=== PATIENT | female | born 1965 | race Caucasian/White ===

== ENCOUNTER 2018-11-10 13:01 | Inpatient (IN) ==
[~2018-11-10 13:01] MED LIST: *HR* Magnesium Sulfate 2 GM/50 ML PIGGYBACK IVPB ONE
[2018-11-10] MEDS ORDERED: 0.9 % Sodium Chloride 500 ML IVC STA (13:13)
[2018-11-10] MEDS ORDERED: Insulin Human Regular 10 UNIT in 0.9 % Sodium Chloride 10 ML IV ONE (13:15)
[2018-11-10] MEDS ORDERED: *HR* Dextrose 50 % in Water (Vial) 50 ML VIAL IVP ONE (13:15)
[2018-11-10] MEDS ORDERED: Albuterol Sulfate 2 MG/5 ML UDC PO ONE (13:16)
[2018-11-10] MEDS ORDERED: Calcium Gluconate 1gm/50mL 1 GM/50 ML BAG IVPB STA (13:18)
[2018-11-10] MEDS ORDERED: *HR* Promethazine 25 MG/ML VIAL ONE (13:29)
[2018-11-10] MEDS ORDERED: Albuterol 2.5 MG/3 ML NEBULIZER ONE ×2 (13:31→13:49)
[2018-11-10 13:40] LABS: Basophils % 0.3 %; Eosinophils % 0.2 %; Hematocrit 37.8 % (35.3-44.9); Immature Granulocytes % 0.4 % (0-4); Lymphocytes # 3.6 K/mcL (0.6-4.6); Lymphocytes % 24.1 %; Mean Corpuscular HGB Conc 32.5 g/dL (31.6-35.5); Mean Corpuscular Hemoglobin 30.4 pg (28.0-33.3); Mean Corpuscular Volume 93.6 fL (83.0-100.0); Mean Platelet Volume 11.2 fL (9.4-12.4); Monocytes # 0.5 K/mcL (0.0-1.3); Monocytes % 3.1 %; Neutrophils # 10.7 K/mcL (1.6-8.9); Nucleated Red Blood Cells 0.1 /100 WBC (0); Platelet Count 406 K/mcL (140-400); Red Blood Count 4.04 M/mcL (3.82-4.97); Red Cell Distribution Width 16.1 % (11.5-14.5); Segmented Neutrophils % 71.9 %
[2018-11-10 13:41] LABS: Hemoglobin 12.3 g/dL (11.5-15.4); White Blood Count 14.9 K/mcL (4.3-11.1)
[2018-11-10] MEDS ORDERED: WATER IVP ONE (13:45)
[2018-11-10] MEDS ORDERED: DEXTROSE 25% IVP ONE (13:45)
[2018-11-10] MEDS ORDERED: Albuterol 2.5 MG/3 ML NEBULIZER IH ONE (13:56)
[2018-11-10] MEDS ORDERED: 0.9 % Sodium Chloride 1,000 ML ONE (14:03)
[2018-11-10 14:12] LABS: Calcium 10.2 mg/dL (8.6-10.3); Potassium 9.6 mEq/L (3.5-5.1)
[2018-11-10] MEDS ORDERED: D5% in Water 1,000 ML IVC ONE (14:12)
[2018-11-10] MEDS ORDERED: Sodium Bicarbonate 50 MEQ/50 ML VIAL ONE (14:12)
[2018-11-10] MEDS ORDERED: *HR* Heparin 10,000 UNIT/10 ML VIAL IV PRN (14:24)
[2018-11-10] MEDS ORDERED: 0.9 % Sodium Chloride 250 ML IVC PRN (14:24)
[2018-11-10] MEDS ORDERED: Sodium Bicarbonate 150 MEQ in D5% in Water 1,000 ML IVC ONE (14:30)
[2018-11-10] MEDS ORDERED: Phenylephrine 10 MG in D5% in Water 250 ML IVC SCH (14:30)
[2018-11-10] MEDS ORDERED: 0.9 % Sodium Chloride 1,000 ML PRIME SCH (14:30)
[2018-11-10] MEDS ORDERED: *HR* Heparin 5,000 UNIT/ML VIAL ONE ×2 (14:35→14:36)
[2018-11-10 14:48] LABS: Albumin 5.5 g/dL (3.5-5.7); Albumin/Globulin Ratio 1.6 (1.1-2.2); Bilirubin,Indirect 0.3 mg/dL (0.0-1.2); Bilirubin,Total 0.3 mg/dL (0.3-1.0); Globulin 3.5 g/dL (2.4-3.5)
[2018-11-10 15:06] LABS: Hepatitis B Surface Antibody 5.58 mIU/mL
[2018-11-10 15:16] LABS: Hepatitis B Surface Antigen Nonreactive (Nonreactive)
[2018-11-10 15:36] LABS: Activated Partial Thrombo Time 92.8 Seconds (26.0-36.0); INR 1.3; Prothrombin Time 14.7 Seconds (9.4-12.1)
[2018-11-10 15:41] LABS: Calcium 11.1 mg/dL (8.6-10.3)
[2018-11-10 15:42] LABS: Potassium 6.8 mEq/L (3.5-5.1)
[2018-11-10 15:44] LABS: Hepatitis B Core IgM Nonreactive (Nonreactive)
[2018-11-10 15:46] LABS: Hepatitis A Antibody IgM Nonreactive (Nonreactive); Hepatitis C Virus Antibody Nonreactive (Nonreactive)
[2018-11-10] MEDS ORDERED: Naloxone 0.4 MG/ML INJ IVP PRN (18:04)
[2018-11-10] MEDS ORDERED: *HR* Dextrose 50 % in Water (Syg) 50 ML SYRINGE IVP PRN (18:10)
[2018-11-10] MEDS ORDERED: Dextrose Gel 15 GM/37.5 ML TUBE PO PRN ×2 (18:10)
[2018-11-10] MEDS ORDERED: D5% in Water 1,000 ML IVC PRN (18:10)
[2018-11-10] MEDS ORDERED: Albuterol 2.5 MG/3 ML NEBULIZER IH PRN (18:12)
[2018-11-10 19:37] LABS: Potassium 3.8 mEq/L (3.5-5.1)
[2018-11-10] MEDS: Insulin LISPRO 300 UNITS/3 ML VIAL SQ SCH (20:00)
[2018-11-10] MEDS: *HR* Heparin 5,000 UNIT/ML VIAL SQ SCH (20:58)
[2018-11-10] MEDS ORDERED: traZODone 50 MG TABLET PO PRN (21:00)
[2018-11-10] MEDS ORDERED: Insulin DETEMIR 100 UNIT/ML X5UNITS SQ SCH (21:00)
[2018-11-10] MEDS ORDERED: Insulin LISPRO 300 UNITS/3 ML VIAL SQ SCH (21:00)
[2018-11-11] MEDS ORDERED: Acetaminophen 325 MG TABLET PO ONE (02:56)
[2018-11-11 03:10] LABS: Basophils % 0.2 %; Eosinophils % 0.5 %; Hematocrit 25.2 % (35.3-44.9); Immature Granulocytes % 0.5 % (0-4); Lymphocytes # 2.8 K/mcL (0.6-4.6); Lymphocytes % 33.9 %; Mean Corpuscular HGB Conc 34.1 g/dL (31.6-35.5); Mean Corpuscular Hemoglobin 30.7 pg (28.0-33.3); Mean Platelet Volume 10.1 fL (9.4-12.4); Monocytes # 0.7 K/mcL (0.0-1.3); Monocytes % 8.3 %; Neutrophils # 4.6 K/mcL (1.6-8.9); Platelet Count 187 K/mcL (140-400); Red Cell Distribution Width 15.9 % (11.5-14.5); Segmented Neutrophils % 56.6 %; White Blood Count 8.1 K/mcL (4.3-11.1)
[2018-11-11 03:31] LABS: Albumin 3.9 g/dL (3.5-5.7); Albumin/Globulin Ratio 1.7 (1.1-2.2); Bilirubin,Direct 0.1 mg/dL (0.0-0.2); Bilirubin,Indirect 0.1 mg/dL (0.0-1.2); Bilirubin,Total 0.2 mg/dL (0.3-1.0); Calcium 9.2 mg/dL (8.6-10.3); Globulin 2.3 g/dL (2.4-3.5); Potassium 4.2 mEq/L (3.5-5.1); Total Protein 6.2 g/dL (6.4-8.9)
[2018-11-11 03:35] LABS: Hemoglobin 8.6 g/dL (11.5-15.4)
[2018-11-11] MEDS: *HR* Heparin 5,000 UNIT/ML VIAL SQ SCH ×2 (06:11→18:21)
[2018-11-11 08:10] LABS: Estimated Average Glucose 143 mg/dl
[2018-11-11] MEDS: Insulin LISPRO 300 UNITS/3 ML VIAL SQ SCH ×4 (10:12→21:15)
[2018-11-11 10:32] LABS: Thyroid Stimulating Hormone 213.77 mcIU/mL (0.340-5.600)
[2018-11-11] MEDS ORDERED: 0.9 % Sodium Chloride 250 ML IVC PRN (12:18)
[2018-11-11] MEDS ORDERED: Naloxone 0.4 MG/ML INJ IVP PRN (12:18)
[2018-11-11] MEDS ORDERED: Dextrose Gel 15 GM/37.5 ML TUBE PO PRN ×2 (12:18)
[2018-11-11] MEDS ORDERED: Albuterol 2.5 MG/3 ML NEBULIZER IH PRN (12:18)
[2018-11-11] MEDS ORDERED: *HR* Dextrose 50 % in Water (Syg) 50 ML SYRINGE IVP PRN (12:18)
[2018-11-11] MEDS ORDERED: D5% in Water 1,000 ML IVC PRN (12:18)
[2018-11-11 16:04] LABS: Bilirubin,Urine Small (Negative); Blood,Urine Moderate (Negative); Clarity,Urine Clear (Clear); Color,Urine Yellow (Yellow); Glucose,Urine (UA) Normal (Normal); Ketones,Urine Trace mg/dL (Negative); Leukocyte Esterase,Urine Moderate (Negative); Nitrite,Urine Negative (Negative); Protein,Urine >=300 mg/dL (Neg-Trace); Specific Gravity,Urine >= 1.030 (1.010-1.025); Urobilinogen,Urine Normal (Normal)
[2018-11-11 16:25] LABS: Bacteria,Urine Few per hpf (None-Few); Squamous Epithelial Cell,Urine Many per lpf (None-Few); WBC,Urine TNTC per hpf (0-3)
[2018-11-11 16:35] LABS: Sodium, Urine 20.6 mEq/L
[2018-11-11] MEDS: Gabapentin 300 MG CAPSULE PO SCH (21:22)
[2018-11-11] MEDS: traZODone 50 MG TABLET PO PRN (21:22)
[2018-11-11] MEDS: Insulin DETEMIR 100 UNIT/ML X5UNITS SQ SCH (21:23)
[2018-11-12 04:27] LABS: Basophils % 0.5 %; Eosinophils # 0.1 K/mcL (0.0-0.6); Eosinophils % 1.4 %; Hematocrit 24.9 % (35.3-44.9); Hemoglobin 8.2 g/dL (11.5-15.4); Immature Granulocytes % 0.2 % (0-4); Lymphocytes # 2.8 K/mcL (0.6-4.6); Lymphocytes % 42.8 %; Mean Corpuscular HGB Conc 32.9 g/dL (31.6-35.5); Mean Corpuscular Hemoglobin 30.6 pg (28.0-33.3); Mean Corpuscular Volume 92.9 fL (83.0-100.0); Mean Platelet Volume 10.5 fL (9.4-12.4); Monocytes # 0.5 K/mcL (0.0-1.3); Neutrophils # 3.1 K/mcL (1.6-8.9); Platelet Count 162 K/mcL (140-400); Red Blood Count 2.68 M/mcL (3.82-4.97); Red Cell Distribution Width 15.9 % (11.5-14.5); Segmented Neutrophils % 48.1 %; White Blood Count 6.4 K/mcL (4.3-11.1)
[2018-11-12] MEDS: *HR* Heparin 5,000 UNIT/ML VIAL SQ SCH ×2 (04:34→16:43)
[2018-11-12 04:50] LABS: Albumin 3.9 g/dL (3.5-5.7); Albumin/Globulin Ratio 1.4 (1.1-2.2); Bilirubin,Total 0.2 mg/dL (0.3-1.0); Calcium 8.8 mg/dL (8.6-10.3); Globulin 2.7 g/dL (2.4-3.5); Total Protein 6.6 g/dL (6.4-8.9)
[2018-11-12] MEDS ORDERED: Albuterol 2.5 MG/3 ML NEBULIZER IH PRN (07:34)
[2018-11-12] MEDS: Insulin LISPRO 300 UNITS/3 ML VIAL SQ SCH ×4 (07:49→20:41)
[2018-11-12] MEDS: Cholecalciferol (D-3) 1,000 UNIT (25MCG) TABLET PO SCH (08:27)
[2018-11-12] MEDS: Aspirin Enteric Coated 81 MG Tablet PO SCH (08:27)
[2018-11-12] MEDS: PARoxetine 30 MG TABLET PO SCH (08:27)
[2018-11-12] MEDS: Folic Acid 1 MG TABLET PO SCH (08:27)
[2018-11-12] MEDS ORDERED: 0.9 % Sodium Chloride 1,000 ML IVC ONE (12:23)
[2018-11-12] MEDS: cefTRIAXone 1,000 MG in Water for inj. (sterile) 10 ML IVP SCH (13:38)
[2018-11-12] MEDS ORDERED: Acetaminophen 325 MG TABLET PO PRN (16:45)
[2018-11-12] MEDS: Gabapentin 300 MG CAPSULE PO SCH (20:34)
[2018-11-12] MEDS: Insulin DETEMIR 100 UNIT/ML X5UNITS SQ SCH (20:42)
[2018-11-13 04:45] LABS: Hemoglobin 8.4 g/dL (11.5-15.4); Mean Corpuscular HGB Conc 32.3 g/dL (31.6-35.5); Mean Corpuscular Hemoglobin 30.5 pg (28.0-33.3); Mean Corpuscular Volume 94.5 fL (83.0-100.0); Mean Platelet Volume 10.3 fL (9.4-12.4); Platelet Count 155 K/mcL (140-400); Red Blood Count 2.75 M/mcL (3.82-4.97); Red Cell Distribution Width 15.5 % (11.5-14.5); White Blood Count 5.4 K/mcL (4.3-11.1)
[2018-11-13 05:04] LABS: Calcium 8.8 mg/dL (8.6-10.3); Potassium 3.9 mEq/L (3.5-5.1)
[2018-11-13] MEDS: Acetaminophen 325 MG TABLET PO PRN ×3 (06:39→20:15)
[2018-11-13] MEDS: *HR* Heparin 5,000 UNIT/ML VIAL SQ SCH ×2 (06:39→17:32)
[2018-11-13] MEDS ORDERED: Insulin LISPRO 300 UNITS/3 ML VIAL SQ SCH (07:30)
[2018-11-13] MEDS: Insulin LISPRO 300 UNITS/3 ML VIAL SQ SCH ×7 (08:49→20:09)
[2018-11-13] MEDS: PARoxetine 30 MG TABLET PO SCH (09:01)
[2018-11-13] MEDS: Aspirin Enteric Coated 81 MG Tablet PO SCH (09:01)
[2018-11-13] MEDS: Folic Acid 1 MG TABLET PO SCH (09:01)
[2018-11-13] MEDS: Cholecalciferol (D-3) 1,000 UNIT (25MCG) TABLET PO SCH (09:01)
[2018-11-13] MEDS: cefTRIAXone 1,000 MG in Water for inj. (sterile) 10 ML IVP SCH (09:02)
[2018-11-13] MEDS ORDERED: *HR* LORazepam 0.5 MG TABLET PO ONE (10:15)
[2018-11-13] MEDS: Insulin DETEMIR 100 UNIT/ML X5UNITS SQ SCH (20:11)
[2018-11-13] MEDS: traZODone 50 MG TABLET PO PRN (20:15)
[2018-11-14 05:40] LABS: Hemoglobin 9.3 g/dL (11.5-15.4); Mean Corpuscular HGB Conc 33.2 g/dL (31.6-35.5); Mean Corpuscular Volume 96.2 fL (83.0-100.0); Mean Platelet Volume 10.6 fL (9.4-12.4); Platelet Count 170 K/mcL (140-400); Red Blood Count 2.91 M/mcL (3.82-4.97); Red Cell Distribution Width 15.6 % (11.5-14.5); White Blood Count 5.2 K/mcL (4.3-11.1)
[2018-11-14 06:05] LABS: Calcium 9.3 mg/dL (8.6-10.3); Potassium 4.4 mEq/L (3.5-5.1)
[2018-11-14] MEDS: *HR* Heparin 5,000 UNIT/ML VIAL SQ SCH ×2 (06:06→17:10)
[2018-11-14] MEDS: Insulin LISPRO 300 UNITS/3 ML VIAL SQ SCH ×7 (07:14→20:36)
[2018-11-14] MEDS: Aspirin Enteric Coated 81 MG Tablet PO SCH (08:14)
[2018-11-14] MEDS: ARIPiprazole 10 MG TABLET PO SCH (08:14)
[2018-11-14] MEDS: cefTRIAXone 1,000 MG in Water for inj. (sterile) 10 ML IVP SCH (08:14)
[2018-11-14] MEDS: PARoxetine 30 MG TABLET PO SCH (08:14)
[2018-11-14] MEDS: Cholecalciferol (D-3) 1,000 UNIT (25MCG) TABLET PO SCH (08:14)
[2018-11-14] MEDS: Folic Acid 1 MG TABLET PO SCH (08:14)
[2018-11-14] MEDS: traZODone 50 MG TABLET PO PRN (20:35)
[2018-11-14] MEDS: Acetaminophen 325 MG TABLET PO PRN (20:35)
[2018-11-14] MEDS: Insulin DETEMIR 100 UNIT/ML X5UNITS SQ SCH (20:36)
[2018-11-15 05:03] LABS: Calcium 9.3 mg/dL (8.6-10.3); Potassium 4.3 mEq/L (3.5-5.1)
[2018-11-15] MEDS: *HR* Heparin 5,000 UNIT/ML VIAL SQ SCH ×2 (05:50→17:48)
[2018-11-15] MEDS: Insulin LISPRO 300 UNITS/3 ML VIAL SQ SCH ×7 (08:54→21:03)
[2018-11-15] MEDS: Folic Acid 1 MG TABLET PO SCH (08:55)
[2018-11-15] MEDS: ARIPiprazole 10 MG TABLET PO SCH (08:55)
[2018-11-15] MEDS: PARoxetine 30 MG TABLET PO SCH (08:55)
[2018-11-15] MEDS: Cholecalciferol (D-3) 1,000 UNIT (25MCG) TABLET PO SCH (08:55)
[2018-11-15] MEDS: Aspirin Enteric Coated 81 MG Tablet PO SCH (08:56)
[2018-11-15] MEDS ORDERED: Sod Bicarb 150mEq/D5W 150 MEQ/1,000 ML IV.SOLN IVC SCH (10:15)
[2018-11-15] MEDS ORDERED: Sodium Bicarbonate 150 MEQ in D5% in Water 1,000 ML IVC SCH (10:30)
[2018-11-15] MEDS: Acetaminophen 325 MG TABLET PO PRN (20:28)
[2018-11-15] MEDS: traZODone 50 MG TABLET PO PRN (21:03)
[2018-11-15] MEDS: Insulin DETEMIR 100 UNIT/ML X5UNITS SQ SCH (21:04)
[2018-11-16] MEDS: *HR* Heparin 5,000 UNIT/ML VIAL SQ SCH ×2 (05:20→17:30)
[2018-11-16 05:55] LABS: Hematocrit 29.2 % (35.3-44.9); Hemoglobin 9.6 g/dL (11.5-15.4); Mean Corpuscular HGB Conc 32.9 g/dL (31.6-35.5); Mean Corpuscular Hemoglobin 32.3 pg (28.0-33.3); Mean Corpuscular Volume 98.3 fL (83.0-100.0); Mean Platelet Volume 10.8 fL (9.4-12.4); Platelet Count 183 K/mcL (140-400); Red Blood Count 2.97 M/mcL (3.82-4.97); Red Cell Distribution Width 15.9 % (11.5-14.5); White Blood Count 5.9 K/mcL (4.3-11.1)
[2018-11-16 06:24] LABS: Calcium 9.4 mg/dL (8.6-10.3); Potassium 4.7 mEq/L (3.5-5.1)
[2018-11-16] MEDS: ARIPiprazole 10 MG TABLET PO SCH (07:42)
[2018-11-16] MEDS: Folic Acid 1 MG TABLET PO SCH (07:43)
[2018-11-16] MEDS: Aspirin Enteric Coated 81 MG Tablet PO SCH (07:43)
[2018-11-16] MEDS: Cholecalciferol (D-3) 1,000 UNIT (25MCG) TABLET PO SCH (07:43)
[2018-11-16] MEDS: Acetaminophen 325 MG TABLET PO PRN ×3 (07:43→22:06)
[2018-11-16] MEDS: PARoxetine 30 MG TABLET PO SCH (07:44)
[2018-11-16] MEDS: Insulin LISPRO 300 UNITS/3 ML VIAL SQ SCH ×7 (07:51→21:15)
[2018-11-16 17:31] LABS: ABG Base Excess -11 mEq/L (-2 to 3); ABG HCO3 14 mEq/L (21-27); ABG Oxygen Saturation 96 % (95-98); ABG PCO2 30 mmHg (35-45); ABG PH 7.29 pH Units (7.32-7.45); ABG PO2 87 mmHg (85-104); ABG TCO2 15 mEq/L (20-26)
[2018-11-16] MEDS: traZODone 50 MG TABLET PO PRN (21:14)
[2018-11-16] MEDS: Insulin DETEMIR 100 UNIT/ML X5UNITS SQ SCH (21:14)
[2018-11-17 03:01] LABS: Hematocrit 28.3 % (35.3-44.9); Hemoglobin 9.2 g/dL (11.5-15.4); Mean Corpuscular HGB Conc 32.5 g/dL (31.6-35.5); Mean Corpuscular Hemoglobin 31.7 pg (28.0-33.3); Mean Corpuscular Volume 97.6 fL (83.0-100.0); Mean Platelet Volume 10.9 fL (9.4-12.4); Platelet Count 163 K/mcL (140-400); Red Cell Distribution Width 16.1 % (11.5-14.5); White Blood Count 5.8 K/mcL (4.3-11.1)
[2018-11-17 04:24] LABS: Albumin 4.1 g/dL (3.5-5.7); Albumin/Globulin Ratio 1.7 (1.1-2.2); Bilirubin,Total 0.1 mg/dL (0.3-1.0); Calcium 8.6 mg/dL (8.6-10.3); Globulin 2.4 g/dL (2.4-3.5); Magnesium 1.3 mg/dL (1.6-2.6); Phosphorous 4.1 mg/dL (2.7-4.5); Potassium 4.4 mEq/L (3.5-5.1); Total Protein 6.5 g/dL (6.4-8.9)
[2018-11-17] MEDS: *HR* Heparin 5,000 UNIT/ML VIAL SQ SCH ×2 (06:25→17:34)
[2018-11-17 08:26] LABS: ABG Base Excess -11 mEq/L (-2 to 3); ABG HCO3 15 mEq/L (21-27); ABG Oxygen Saturation 94 % (95-98); ABG PCO2 31 mmHg (35-45); ABG PH 7.29 pH Units (7.32-7.45); ABG PO2 79 mmHg (85-104); ABG TCO2 16 mEq/L (20-26)
[2018-11-17] MEDS: PARoxetine 30 MG TABLET PO SCH (08:55)
[2018-11-17] MEDS: Cholecalciferol (D-3) 1,000 UNIT (25MCG) TABLET PO SCH (08:55)
[2018-11-17] MEDS: Aspirin Enteric Coated 81 MG Tablet PO SCH (08:55)
[2018-11-17] MEDS: ARIPiprazole 10 MG TABLET PO SCH (08:55)
[2018-11-17] MEDS: Folic Acid 1 MG TABLET PO SCH (08:55)
[2018-11-17] MEDS: Insulin LISPRO 300 UNITS/3 ML VIAL SQ SCH ×7 (08:56→21:10)
[2018-11-17 18:42] LABS: Magnesium 2.8 mg/dL (1.6-2.6); Troponin I < 0.03 ng/mL (< 0.04)
[2018-11-17] MEDS: Acetaminophen 325 MG TABLET PO PRN (21:08)
[2018-11-17] MEDS: traZODone 50 MG TABLET PO PRN (21:08)
[2018-11-17] MEDS: Insulin DETEMIR 100 UNIT/ML X5UNITS SQ SCH (21:09)
[2018-11-18] MEDS: *HR* Heparin 5,000 UNIT/ML VIAL SQ SCH (05:27)
[2018-11-18] MEDS: ARIPiprazole 10 MG TABLET PO SCH (07:42)
[2018-11-18] MEDS: Cholecalciferol (D-3) 1,000 UNIT (25MCG) TABLET PO SCH (07:42)
[2018-11-18] MEDS: PARoxetine 30 MG TABLET PO SCH (07:42)
[2018-11-18] MEDS: Aspirin Enteric Coated 81 MG Tablet PO SCH (07:44)
[2018-11-18] MEDS: Folic Acid 1 MG TABLET PO SCH (07:44)
[2018-11-18] MEDS: Insulin LISPRO 300 UNITS/3 ML VIAL SQ SCH ×2 (07:45→07:46)
[2018-11-18] MEDS: Acetaminophen 325 MG TABLET PO PRN (07:52)
[2018-11-18 11:05] VITALS: BP 127/84
== END 2018-11-18 11:32 | disposition home or self-care (01) | DRG 683 ==
LOC: EMEROOARM 13:01 → SUATTDRO 16:16 → ICNU 16:16 → 2ANU 11-11 16:50
PROVIDERS: ADMIT Internal Medicine; ATTEND Family Medicine

== ENCOUNTER 2020-03-08 08:22 | Observation (INO) ==
[2020-03-08] MEDS ORDERED: Naloxone 0.4 MG/ML INJ IVP PRN ×2 (09:45→14:20)
[2020-03-08] MEDS ORDERED: 0.9 % Sodium Chloride 1,000 ML IVC SCH (09:45)
[2020-03-08] MEDS ORDERED: Ondansetron 4 MG/2 ML VIAL IVP PRN ×2 (09:45→14:20)
[2020-03-08] MEDS ORDERED: *HR* HYDROcodone/Acet 5/325 mg TABLET PO PRN ×2 (09:45→14:20)
[2020-03-08] MEDS ORDERED: *HR* OxyCODONE Immed Rel 5 MG TABLET PO PRN ×2 (09:45→14:20)
[2020-03-08] MEDS ORDERED: Dextrose Gel 15 GM/37.5 ML TUBE PO PRN ×4 (09:48→14:20)
[2020-03-08] MEDS ORDERED: *HR* Dextrose 50 % in Water (Vial) 50 ML VIAL IVP PRN ×2 (09:48→14:20)
[2020-03-08] MEDS ORDERED: D5% in Water 1,000 ML IVC PRN ×2 (09:48→14:20)
[2020-03-08] MEDS ORDERED: cefTRIAXone 1,000 MG in Water for inj. (sterile) 10 ML IVP SCH (10:00)
[2020-03-08] MEDS ORDERED: Insulin LISPRO 300 UNITS/3 ML VIAL SQ SCH ×3 (12:00→21:00)
[2020-03-08] MEDS ORDERED: *HR* HYDROmorphone PF 0.5 MG/0.5 ML SYRINGE IVP PRN ×2 (12:27→14:20)
[2020-03-08] MEDS ORDERED: *HR* FentaNYL (PF) 100 MCG/2 ML VIAL ONE (12:35)
[2020-03-08] MEDS ORDERED: *HR* Propofol 200 MG/20 ML VIAL IVP ONE (12:35)
[2020-03-08] MEDS ORDERED: Lidocaine -MPF 2% 2 ML VIAL ONE (12:37)
[2020-03-08] MEDS ORDERED: Isovue-300 50ML VIAL ONE (12:42)
[2020-03-08] MEDS ORDERED: Ondansetron 4 MG/2 ML VIAL ONE (12:58)
[2020-03-08] MEDS ORDERED: Dexamethasone 4 MG/ML VIAL ONE (12:58)
[2020-03-08] MEDS ORDERED: Acetaminophen IV 1,000 MG/100 ML INFUS..BTL ONE (13:03)
[2020-03-08] MEDS: 0.9 % Sodium Chloride 1,000 ML IVC SCH (17:32)
[2020-03-09] MEDS: 0.9 % Sodium Chloride 1,000 ML IVC SCH (01:06)
[2020-03-09 03:16] LABS: Basophils % 0.2 %; Hematocrit 29.5 % (35.3-44.9); Hemoglobin 9.3 g/dL (11.5-15.4); Immature Granulocytes % 0.2 % (0-4); Lymphocytes # 0.8 K/mcL (0.6-4.6); Lymphocytes % 12.6 %; Mean Corpuscular HGB Conc 31.5 g/dL (31.6-35.5); Mean Corpuscular Hemoglobin 29.2 pg (28.0-33.3); Mean Corpuscular Volume 92.5 fL (83.0-100.0); Mean Platelet Volume 11.5 fL (9.4-12.4); Monocytes # 0.3 K/mcL (0.0-1.3); Monocytes % 4.2 %; Neutrophils # 5.3 K/mcL (1.6-8.9); Platelet Count 152 K/mcL (140-400); Red Blood Count 3.19 M/mcL (3.82-4.97); Red Cell Distribution Width 14.8 % (11.5-14.5); Segmented Neutrophils % 82.8 %; White Blood Count 6.4 K/mcL (4.3-11.1)
[2020-03-09 03:21] LABS: INR 1.1; Prothrombin Time 12.5 Seconds (9.4-12.1)
[2020-03-09 03:24] LABS: Activated Partial Thrombo Time 34.2 Seconds (26.0-36.0)
[2020-03-09 03:33] LABS: Calcium 8.6 mg/dL (8.6-10.3); Magnesium 1.7 mg/dL (1.6-2.6); Phosphorous 3.3 mg/dL (2.7-4.5); Potassium 4.5 mEq/L (3.5-5.1)
[2020-03-09 05:33] VITALS: BP 133/78
[2020-03-09] MEDS ORDERED: Insulin LISPRO 300 UNITS/3 ML VIAL SQ SCH (07:30)
[2020-03-09] MEDS ORDERED: cefTRIAXone 1,000 MG in 0.9 % Sodium Chloride Mini Bag 100 ML IVP SCH (09:00)
== END 2020-03-09 10:58 | disposition home or self-care (01) ==
LOC: 3ANU → SUATTDRO 09:18
PROVIDERS: ADMIT Internal Medicine; ATTEND Family Medicine

== ENCOUNTER 2020-03-29 16:37 | Observation (INO) ==
[2020-03-29] MEDS ORDERED: *HR* FentaNYL (PF) 100 MCG/2 ML VIAL IVP STA (17:28)
[2020-03-29] MEDS ORDERED: Ketorolac 15 MG/ML VIAL IVP ONE (17:28)
[2020-03-29] MEDS ORDERED: 0.9 % Sodium Chloride 1,000 ML IVC ONE (17:28)
[2020-03-29] MEDS ORDERED: Ondansetron 4 MG/2 ML VIAL IVP ONE (17:28)
[2020-03-29 17:58] LABS: Hematocrit 33.7 % (35.3-44.9); Hemoglobin 10.6 g/dL (11.5-15.4); Mean Corpuscular HGB Conc 31.5 g/dL (31.6-35.5); Mean Corpuscular Hemoglobin 29.2 pg (28.0-33.3); Mean Corpuscular Volume 92.8 fL (83.0-100.0); Mean Platelet Volume 11.6 fL (9.4-12.4); Platelet Count 155 K/mcL (140-400); Red Blood Count 3.63 M/mcL (3.82-4.97); Red Cell Distribution Width 15.1 % (11.5-14.5); White Blood Count 7.2 K/mcL (4.3-11.1)
[2020-03-29 18:18] LABS: Calcium 8.7 mg/dL (8.6-10.3); Potassium 4.6 mEq/L (3.5-5.1)
[2020-03-29 18:35] LABS: Bilirubin,Urine Negative (Negative); Blood,Urine Large (Negative); Clarity,Urine Turbid (Clear); Color,Urine Light-Orange (Yellow); Glucose,Urine (UA) Normal (Normal); Ketones,Urine Negative (Negative); Leukocyte Esterase,Urine Negative (Negative); Mucus,Urine Few per lpf (None-Few); Nitrite,Urine Negative (Negative); Protein,Urine 200 mg/dL (Neg-Trace); RBC,Urine TNTC per hpf (0-3); Specific Gravity,Urine 1.019 (1.010-1.025); Squamous Epithelial Cell,Urine Few per hpf (None-Few); Urobilinogen,Urine Normal (Normal); WBC,Urine 15-30 per hpf (0-3)
[2020-03-29] MEDS ORDERED: *HR* HYDROmorphone (PF) 1 MG/ML SYRINGE IVP STA (19:58)
[2020-03-29] MEDS ORDERED: Insulin LISPRO 300 UNITS/3 ML VIAL SUBQ SCH (23:30)
[2020-03-29] MEDS ORDERED: Dextrose Gel 15 GM/37.5 ML TUBE PO PRN ×2 (23:30)
[2020-03-29] MEDS ORDERED: D5% in Water 1,000 ML IVC PRN (23:30)
[2020-03-29] MEDS ORDERED: *HR* Dextrose 50 % in Water (Vial) 50 ML VIAL IVP PRN (23:30)
[2020-03-29] MEDS ORDERED: Ondansetron 4 MG/2 ML VIAL IVP PRN (23:42)
[2020-03-29] MEDS ORDERED: Acetaminophen 325 MG TABLET PO PRN (23:42)
[2020-03-29] MEDS ORDERED: Naloxone 0.4 MG/ML INJ IVP PRN (23:42)
[2020-03-29] MEDS ORDERED: 0.9 % Sodium Chloride 1,000 ML IVC SCH (23:45)
[2020-03-29] MEDS: *HR* HYDROcodone/Acet 5/325 mg TABLET PO PRN (23:49)
[2020-03-30 01:54] LABS: Basophils % 0.5 %; Eosinophils # 0.1 K/mcL (0.0-0.6); Eosinophils % 2.1 %; Hematocrit 31.4 % (35.3-44.9); Hemoglobin 9.8 g/dL (11.5-15.4); Immature Granulocytes % 0.5 % (0-4); Lymphocytes # 1.4 K/mcL (0.6-4.6); Lymphocytes % 25.4 %; Mean Corpuscular HGB Conc 31.2 g/dL (31.6-35.5); Mean Corpuscular Hemoglobin 29.3 pg (28.0-33.3); Mean Corpuscular Volume 93.7 fL (83.0-100.0); Mean Platelet Volume 11.4 fL (9.4-12.4); Monocytes # 0.3 K/mcL (0.0-1.3); Monocytes % 5.9 %; Neutrophils # 3.7 K/mcL (1.6-8.9); Platelet Count 150 K/mcL (140-400); Red Blood Count 3.35 M/mcL (3.82-4.97); Red Cell Distribution Width 15.1 % (11.5-14.5); Segmented Neutrophils % 65.6 %; White Blood Count 5.6 K/mcL (4.3-11.1)
[2020-03-30 02:17] LABS: Prothrombin Time 11.9 Seconds (9.4-12.1)
[2020-03-30 02:18] LABS: Alanine Aminotransferase 14 Units/L (7-52); Albumin 3.7 g/dL (3.5-5.7); Albumin/Globulin Ratio 1.4 (1.1-2.2); Alkaline Phosphatase 83 Units/L (34-104); Aspartate Amino Transferase 24 Units/L (13-39); BUN/Creatinine Ratio 27 (6-26); Bilirubin,Total 0.2 mg/dL (0.3-1.0); Blood Urea Nitrogen 45 mg/dL (6-20); Calcium 8.2 mg/dL (8.6-10.3); Carbon Dioxide 18 mEq/L (23-29); Chloride 106 mEq/L (98-107); Chol/HDL Ratio 4.2 (0-4.9); Cholesterol 143 mg/dL (< 200); Globulin 2.6 g/dL (2.4-3.5); Glucose 257 mg/dL (70-105); HDL Cholesterol 34 mg/dL (40-59); Magnesium 1.7 mg/dL (1.6-2.6); Osmolality,Calculated 302 (280-300); Phosphorous 4.8 mg/dL (2.7-4.5); Potassium 4.4 mEq/L (3.5-5.1); Sodium 136 mEq/L (136-145); Total Protein 6.3 g/dL (6.4-8.9); Triglycerides 417 mg/dL (< 150); eGFR For African Americans 39 (> 60); eGFR For Non-African Americans 32 (> 60)
[2020-03-30 02:20] LABS: Activated Partial Thrombo Time 35.8 Seconds (26.0-36.0)
[2020-03-30] MEDS: *HR* HYDROcodone/Acet 5/325 mg TABLET PO PRN (07:02)
[2020-03-30] MEDS ORDERED: *HR* HYDROcodone/Acet 5/325 mg TABLET PO PRN ×2 (07:50→15:12)
[2020-03-30] MEDS ORDERED: carvediloL 6.25 MG TABLET PO SCH ×2 (08:00→17:00)
[2020-03-30] MEDS: Insulin LISPRO 300 UNITS/3 ML VIAL SUBQ SCH ×2 (08:15→12:23)
[2020-03-30] MEDS ORDERED: Furosemide 20 MG TABLET PO SCH (09:00)
[2020-03-30] MEDS ORDERED: gemfibroziL 600 MG TABLET PO SCH ×2 (09:00→21:00)
[2020-03-30] MEDS ORDERED: Cholecalciferol (D-3) 1,000 UNIT (25MCG) TABLET PO SCH (09:00)
[2020-03-30] MEDS ORDERED: Aspirin Enteric Coated 81 MG Tablet PO SCH (09:00)
[2020-03-30] MEDS ORDERED: Multivit/Ca/Min/Fe/FA 1 TAB TABLET PO SCH (09:00)
[2020-03-30 11:00] LABS: Estimated Average Glucose 183 mg/dl
[2020-03-30] MEDS ORDERED: cefTRIAXone 1,000 MG in Water for inj. (sterile) 10 ML IVP ONE (11:57)
[2020-03-30] MEDS ORDERED: Dexamethasone 4 MG/ML VIAL ONE (13:16)
[2020-03-30] MEDS ORDERED: *HR* FentaNYL (PF) 100 MCG/2 ML VIAL ONE (13:16)
[2020-03-30] MEDS ORDERED: *HR* Propofol 200 MG/20 ML VIAL IVP ONE (13:16)
[2020-03-30] MEDS ORDERED: Ondansetron 4 MG/2 ML VIAL ONE (13:16)
[2020-03-30] MEDS ORDERED: Lidocaine -MPF 2% 2 ML VIAL ONE (13:16)
[2020-03-30] MEDS ORDERED: Acetaminophen IV 1,000 MG/100 ML BAG IVPB ONE (13:29)
[2020-03-30] MEDS ORDERED: *HR* Dextrose 50 % in Water (Vial) 50 ML VIAL IVP PRN (15:12)
[2020-03-30] MEDS ORDERED: Dextrose Gel 15 GM/37.5 ML TUBE PO PRN ×2 (15:12)
[2020-03-30] MEDS ORDERED: Naloxone 0.4 MG/ML INJ IVP PRN (15:12)
[2020-03-30] MEDS ORDERED: D5% in Water 1,000 ML IVC PRN (15:12)
[2020-03-30] MEDS ORDERED: Acetaminophen 325 MG TABLET PO PRN (15:12)
[2020-03-30] MEDS ORDERED: 0.9 % Sodium Chloride 1,000 ML IVC SCH (15:12)
[2020-03-30] MEDS ORDERED: Ondansetron 4 MG/2 ML VIAL IVP PRN (15:12)
[2020-03-30 16:25] VITALS: BP 137/81
[2020-03-30] MEDS ORDERED: Insulin LISPRO 300 UNITS/3 ML VIAL SUBQ SCH ×2 (16:30→21:00)
[2020-03-31] MEDS ORDERED: Multivit/Ca/Min/Fe/FA 1 TAB TABLET PO SCH (09:00)
[2020-03-31] MEDS ORDERED: Aspirin Enteric Coated 81 MG Tablet PO SCH (09:00)
[2020-03-31] MEDS ORDERED: Cholecalciferol (D-3) 1,000 UNIT (25MCG) TABLET PO SCH (09:00)
== END 2020-03-30 17:57 | disposition home or self-care (01) ==
LOC: 3ANU 16:37 → EMEROOARM 16:37 → SUATTDRO 21:12 → 3ANU 21:45
PROVIDERS: ADMIT Internal Medicine Nephrology; ATTEND Internal Medicine
PROC: UROLITH (2020-03-30 18:35)